=== PATIENT | female | born 1960 | race African-American/Black ===

== ENCOUNTER 2022-11-10 09:10 | Emergency (ER) | payer OTHER, SELFPAY ==
--- NOTE | ~2022-11-10 | XR_ITS ---
EXAMINATION: XR finger 3rd RT min 2V DATE: 11/10/2022 10:43 INDICATION: Right hand third digit pain and swelling at the proximal interphalangeal joint. TECHNIQUE: 4 views of right hand third digit were obtained. COMPARISON: None. FINDINGS: Bone alignment is normal. No fracture. There is severe osteoarthritis of interphalangeal manolo int with loose body. There is mild osteoarthritis of third distal interphalangeal joint. IMPRESSION: 1. 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 Reviewed, dictated and finalized at location A. [employer] COORDINATOR IMPRESSION: 1. Severe osteoarthritis of third proximal interphalangeal joint with loose bod y.
--- NOTE | 2022-11-10 09:11 | ED.UPPEXIN ---
HPI - Extremity Injury (Upper) General Chief Complaint: Extremity Injury, Upper Stated Complaint: rt middle finger injury Time Seen by Provider: 11/10/22 09:11 Source: patient and RN notes reviewed History of Present Illness HPI narrative: Patient is a 62-year-old female who presents to urgent care with complaints of right middle finger pain and swelling. Patient states she noticed it yesterday and has had increase in pain this morning. Patient believes she may have had it while doing housework yesterday but is uncertain. Patient denies any known injury. She has been taking Tylenol for the pain with her last dose this morning. No other acute complaints or injuries. Patient aware of the plan of care. Some parts of this dictation were generated by voice recognition software and may contain typographical and/or grammatical inaccuracies. Related Data Home Medications Medication Instructions Recorded Confirmed amlodipine 5 mg tablet mg 11/10/22 cholecalciferol (vitamin D3) 125 125 mcg PO DAILY 11/10/22 11/10/22 mcg (5,000 unit) tablet (Vitamin D3) fluticasone propionate 50 intranasal 11/10/22 mcg/actuation nasal spray,suspension hydrochlorothiazide 12.5 mg tablet mg 11/10/22 naproxen 500 mg tablet mg 11/10/22 omeprazole 40 mg capsule,delayed mg 11/10/22 release Allergies Allergy/AdvReac Type Severity Reaction Status Date / Time No Known Allergies Allergy Verified 11/10/22 10:05 Review of Systems Review of Systems: CONSTITUTIONAL: Denies fever, chills, or sweats. EYES: Denies visual changes, redness, or discharge. ENT: Denies rhinorrhea, congestion, sore throat, or otalgia. CARDIOVASCULAR: Denies chest pain, palpitations, or edema. RESPIRATORY: Denies cough or dyspnea. GASTROINTESTINAL: Denies abdominal pain, nausea, vomiting, or diarrhea. GENITOURINARY: Denies dysuria or hematuria. SKIN: Denies rash or itching. MUSCULOSKELETAL: Reports of right middle finger pain and swelling NEUROLOGIC: Denies headache, numbness, or weakness. All other systems reviewed are negative, except as documented in HPI. PMFSH Comments At the time of my signature, I reviewed and agree with the nursing past medical, surgical, social, and family history. There is no relevant family history pertinent to the patient complaint. Exam Narrative: GENERAL: This is a well-nourished, well-developed patient, in no apparent distress. HEAD: normocephalic, atraumatic. EYES: PERRL. Sclera clear/white. Vision is grossly intact. EARS: External ears normal NOSE: External nose normal with no obvious nasal discharge, nares without redness, no rhinorrhea. THROAT: Mucous membranes moist NECK: Neck supple SKIN: warm, intact with no suspicious lesions or rash, good texture and turgor. NEURO: awake, alert, and oriented to person, place and time. There were no obvious focal neurologic abnormalities. EXTREMITIES: Positive strong right radial pulse with capillary refill less than 2 seconds. No range of motion tested due to right middle finger due to pain and possible dislocation. Swelling to the day PIP of the left middle finger with mild to moderate swelling. Course Course Level of Care: Express Care Visit Vital Signs Vital signs: Vital Signs Temperature 97.8 F 11/10/22 10:14 Pulse Rate 86 11/10/22 10:14 Respiratory Rate 16 11/10/22 10:14 Blood Pressure 147/89 H 11/10/22 10:14 Pulse Oximetry 98 11/10/22 10:14 Temperature 97.8 F 11/10/22 10:14 Pulse Rate 86 11/10/22 10:14 Respiratory Rate 16 11/10/22 10:14 Blood Pressure 147/89 H 11/10/22 10:14 Pulse Oximetry 98 11/10/22 10:14 Reviewed- Patient is informed that they may have pre-hypertension or hypertension based on a blood pressure reading in the department. I recommend the patient call the primary care provider listed on their discharge instructions or a physician of their choice this week to arrange follow-up for further evaluation of possible pre-
[2022-11-10 10:14] VITALS: BP 147/89; PULSE 86; RESP 16; TEMP 36.6; O2SAT 98
== END 2022-11-10 11:28 | disposition home or self-care (01) ==
PROVIDERS: Emergency Provider Nurse Practitioner Family
DX: M19.041 Primary osteoarthritis, right hand (principal); M24.041 Loose body in right finger joint(s); Z79.1 Long term (current) use of non-steroidal anti-inflammatories (NSAID)
CPT/HCPCS: 29130; 73140; 99213; G0463